=== PATIENT | male | born 1960 | race Caucasian/White ===

== ENCOUNTER 2023-01-23 09:34 | Outpatient (CLI) | payer OTHER, SELFPAY ==
--- NOTE | ~2023-01-23 | CT_ITS ---
CT Scan of the Chest without Contrast: Clinical Indication: Lung cancer screening, personal history of nicotine dependence Technique: Contiguous sections were acquired throughout the chest without intravenous contrast. Dose reduction technique was used on this scan by utilizing automated exposure control and iterative recon struction technique. The dose-length product (DLP) was 176.59 mGy-cm. Findings: There is no evidence of any significant mediastinal, hilar or axillary lymphadenopathy. Coronary barry ry calcifications are noted. There is no evidence of pleural or pericardial effusion. The lungs are clear. No pulmonary nodules or infiltrates are noted. Images through the upper abdomen reveal no abnormalities. Impression: Lung-RADS 1: Negative. 12 month follow-up screening CT advised. Reviewed, dictated and finalized at location . Impression: Lung-RADS 1: Negative. 12 month follow-up screening CT advised.
== END 2023-01-23 09:35 | disposition home or self-care (01) ==
PROVIDERS: PCP Family Medicine; Visit Provider Family Medicine
DX: Z12.2 Encounter for screening for malignant neoplasm of respiratory organs (principal); Z87.891 Personal history of nicotine dependence
CPT/HCPCS: 71271

== ENCOUNTER 2025-01-07 08:07 | Outpatient (CLI) | payer MEDICARE, SELFPAY ==
--- OUTSIDE RECORDS SUMMARY | 2025-01-07 08:27 | XMS_ITS | Data Portability ---
Author Organization [facility], Main Office Address [address] [place] [address] Care Team Providers Care Raiser Helper Name Role Phone JT ELKINS Primary Care Provider JT ELKINS Referring Provider [phone] Assessment Encounter Date Assessment Date Assessment LastModified by Organization Details LastModified Time 06/06/2023 06/06/2023 Patient is 11 years status post total knee arthroplasty right doing well. He has an arthritic left knee [id number]. Clearly is going to need a knee replacement at some point he is not ready at this time that we discuss surgical possibilities intervention. He will call me when he is ready I have discussed this with him in detail risks benefits limitations and alternatives. In the meantime I injected the left knee with 20 mg Kenalog 4 cc 1% lidocaine. ata Not available 06/06/2023 10:59:41 07/06/2024 07/06/2024 64-year-old male presents for evaluation of his left knee. He reports 3-4 years of arthritis pain, currently rated as 3/10. It has been getting worse over the past month, with increasing swelling. He has a history of a TKA on the [place] [address] Galeano. For the left knee, he has been using Biofreeze, taking diclofenac, and also had a cortisone injection about a year ago which worked well for a few months. He currently smokes 2 packs a day. Review of systems per patient questionnaire Physical exam: Right knee incision is well healed, good range of motion 0-130. Left knee with tenderness palpation over the medial and lateral joint line, range motion 0-130. Sensation intact to light touch, 2+ DP pulse X-rays reviewed, demonstrating right TKA in place. Left knee with severe degenerative changes,bone-on-b one of the medial compartment, lateral compartment chondrocalcinosis , patellofemoral joint space narrowing and osteophytes He has left knee arthritis and we will continue conservative management. He does not want to do physical therapy so we gave him a home exercise program. We also gave him a diclofenac refill, as he said Celebrex and meloxicam did not work well for him in the past. We also discussed a repeat cortisone injection which she wanted to proceed with today. He tolerated that well. We will see him back as needed, we discussed that he can get injections every 3-4 months if needed. [email or web address] Not available 07/06/2024 12:48:39 Plan of Treatment Reminders Order Date Submit Date Provider Last Modified By Organization Details Last Modified Time Details Appointments None recorded. Lab None recorded. Referral None recorded. Procedures injection/a spiration joint/bursa (PROC) 2023 024 [email or web address] 3 In-Office Order, Internal Use Only DO Not Attach Compendium DO Not Attach Compendium, Do Not Delete/merge, [id number] 4 10:32:28 injection/a spiration joint/bursa (PROC) - in office procedure, administere d by provider 2022 023 [email or web address] In-Office Order, Internal Use Only DO Not Attach Compendium DO Not Attach Compendium, Do Not Delete/merge, [id number] 3 10:51:52 Surgeries None recorded. Imaging XR, knee 2023 024 [email or web address] [facility], [address], [place], [address], 4 14:48:30 XR, knee, 4 or more view 2022 023 [email or web address] [facility] [place], [facility], [place], [address], 3 11:34:41 Medication Orders diclofenac sodium 75 mg tablet,dara yed release 2023 024 [email or web address] [id number], [address], [place], [place], [id number], 4 14:48:30 bupivacaine HCl 0.5 % (5 mg/mL) injection solution [address] [facility][id number], [address], [place], [place], [id number], 4 14:48:30 Kenalog 10 mg/mL suspension for injection [address] [facility][id number], [address], [place], [place], [id number], 4 14:48:30 Kenalog 10 mg/mL suspension for injection [address] [facility]34108, [address] , [place], [place], [id number], 4 10:09:49 ropivacaine (PF) 5 mg/mL (0.5 %) injection solution [address] [facility]98647, [address] , [place], [place], [id number], 4 10:09:59 Patient TargetsNo targets recorded. Patient InstructionsNo instructions recorded. Reason for Referral None Reported. Results Created Date Observation Date Name Description Value Unit Range Abnormal Flag Note LastModifiedBy Organization Detail LastModifiedTime 06/06/20 23 XR, knee, 4 or more view No observ ation record ed. ata [facility] [address], [place], [address], 06/06/2023 10:58:56 07/06/20 24 XR, knee No observ ation record ed. [email or web address] [facility] [address], [place], [address], 07/06/2024 10:14:36 Result Notes None recorded. Problems Name Problem SNOMED Code Status Onset Date Resolution Date Notes Provider Name and Address Organization Details Recorded Time Arthritis of left knee 7474474493471 104 Active 2020 Not Available [facility] 3 13:30:05 History of right total knee replacemen t 9391943052964 102 Active 2020 Not Available [facility] 3 13:30:06 Osteoarthr itis of hip 619036762 Active Not Available [facility] 3 13:30:06 Knee pain Active Not Available [facility] 3 13:30:06 Hip pain 43977527 Active Not Available [facility] 3 13:30:06 Pain in limb 83499964 Active Not Available [facility] 3 13:30:06 Pain of left knee joint 5415170447265 07 Active 2023 Laurel Caraballo CNA null, [place] [facility] 4 10:14:28 Osteoarthr itis of left knee joint 1721635325946 09 Active 2024 MARCIA Law, [place] - [facility] 5 11:45:00 Problem Notes None recorded. Procedures Surgical History Date Name Laterality Status Provider Name and Address Organization Details Recorded Time 3 Ortho - Cortisone Injection completed Cameron Lane MD [address] [place] [address], [address], [address], [place] [facility] 06/06/2023 10:59:52 Knee Surgery completed Laurel Caraballo CNA [place] [facility] 07/06/2024 10:12:18 Hip surgery completed GURMEET Rios [place] [facility] 06/06/2023 10:31:30 Shoulder completed Laurel Caraballo CNA [place] [facility] 07/06/2024 10:12:31 Imaging Results Imaging Date Name Status LastModified by Organiz ation Details LastModified Time 06/06/2023 XR, knee, 4 or more view completed ata [facility] [address], [place], [address], 06/06/2023 10:58:56 07/06/2024 XR, knee completed [email or web address] [facility] [address], [place], [address], 07/06/2024 10:14:36 Procedure Notes None recorded. Medical Equipment None Reported. Allergies No known drug allergies Medications Name Sig Start Date Stop Date Status Note LastModified by Organization Details LastModified Time celecoxib 200 mg capsule TAKE 1 CAPSULE BY MOUTH EVERY DAY 07/06 completed Not Available Not Available Not Available amoxicillin 500 mg capsule 07/14 completed Not Available Not Available Not Available prednisone 10 mg tablet 07/14 completed Not Available Not Available Not Available ibuprofen 800 mg tablet 07/14 completed Not Available Not Available Not Available hydrocodone 5 mg-acetamin ophen 325 mg tablet 07/14 completed Not Available Not Available Not Available bupivacaine HCl 0.5 % (5 mg/mL) injection solution in office 2023 active Not Available Not Available Not Avai lable sulfamethox azole 800 mg-trimetho prim 160 mg tablet TK 1 T PO BID 07/14 completed Not Available Not Available Not Available Kenalog 10 mg/mL suspension for injection in office 2023 active NDC: 0003- 0494- 20 Not Available Not Available Not Available cephalexin 500 mg capsule 07/14 completed Not Available Not Available Not Available diclofenac potassium 50 mg tablet TAKE 1 TABLET BY MOUTH TWICE DAILY 07/06 completed Not Available Not Available Not Available diclofenac sodium 75 mg tablet,dara yed release Take 1 tablet twice a day by oral route. 2023 active Not Available Not Available Not Avai lable diclofenac sodium 50 mg tablet,dara yed release TAKE 1 TABLET BY MOUTH TWICE DAILY active Not Available Not Available No t Available ibuprofen 600 mg tablet 07/14 completed Not Available Not Available Not Available lidocaine (PF) 10 mg/mL (1 %) injection solution In office injection administe red by the provider 07/06 completed NDC: 0409- 4276- 17 Not Available Not Available Not Available Synvisc-One 48 mg/6 mL intra-artic ular syringe Take 6 mL by intraarti cular route as directed, for left knee osteoarth ritis. 2024 active Not Available Not Available Not Avai lable ropivacaine (PF) 5 mg/mL (0.5 %) injection solution Take 20 mg by injection route. 07/06 completed [facility] [phone] -[phone] Not Available Not Available Not Available Vitals Date Recorded Body mass index (BMI) Body height Body weight Provider Name and Address Organization Details Last Updated DateTime 02/16/2021 33.7 kg/m2 177.8 cm 649727.21 g Not Available [facility] 12/26/2022 13:29:52 Date Recorded Body height Body mass index (BMI) Body weight Provider Name and Address Organization Details Last Updated DateTime 06/06/2023 175.26 cm 32.5 kg/m2 10699.32 g GURMEET Rios [employer] 06/06/2023 10:29:42 Date Recorded Body height Body mass index (BMI) Body weight Provider Name and Address Organization Details Last Updated DateTime 07/06/2024 175.26 cm 28.8 kg/m2 94106.51 g Laurel Caraballo CNA [employer] 07/06/2024 10:08:55 Social History Question Answer Notes LastModified by Organizat ion Details LastModified Time Tobacco Smoking Status Current Every Day Smoker Tonya Carnes ATC L [facility], [employer] 06/06/2023 10:30:46 What Is Your Level Of Alcohol Consumption? None Information not available 07/06/2024 How Much Tobacco Do You Smoke? 2 PPD [email or web address] Information not available 06/06/2023 How Many Years Have You Smoked Tobacco? 50 Information not available 07/06/2024 Sex: Unknown Functional Status None recorded. Mental Status None recorded. Family History Relationship Description Onset Age of this Age Resolved Age Notes LastModified by Organization Details LastModified Time Father Family history of malignant neoplasm [email or web address] Not available 05/28 10:30:08 Mother Kidney disease [email or web address] Not available 05/28 10:30:17 Mother Heart disease [email or web address] Not available 2023 10:11:22 Brother Kidney disease [email or web address] Not available 2023 10:11:06 Notes:cancer-brother Medical History Condition Response ARTHRITIS Y GOUT Y COPD Y Past Encounters Encounter ID Performer Location Encounter Start Date Encounter Closed Date Diagnosis/Indication Diagnosis SNOMED-CT Code Diagnosis ICD10 Code Diagnosis Note [id number] [facility] [address] [place] [address] 02/16/2021 00:00:00 02/16/2021 13:33:[id number] MD [facility] [address] [place] [address] 06/06/2023 10:10:24 06/06/2023 11:34:41 Arthritis of left knee 5050758220 433007 M13.862 History of right total knee replacement 8727562537 144856 Z96.651 Knee pain 41320984 M25.5 62 [id number] Houston Zhang MD [facility] [address] [place] [address] 07/06/2024 09:47:27 07/06/2024 10:44:54 Pain of left knee joint 0212163047 59987 M25.562 Health Concerns Section Related Observation LastModified by Organization Detai ls LastModified Time None Recorded Concern Status LastModified by Organization Details LastModified Time None Recorded Advance Directives Directive None Recorded Payers Encounter Date Sequence Insurance Name Policy Number Policy Kevin Covered Member ID Kevin Member ID Guarantor Name 06/06/2023 1 [facility] [id number] Jori Sumi [id number] Jori Sumi 07/06/2024 1 [facility] (MEDICARE REPLACEMENT/A DVANTAGE - PPO) [id number] Jori Jonas [id number] Jori Jonas Notes Date Note Type Note Provider Name and Address Organization Details Recorded Time 02/16/2021 text/html KneeReported bypatient.Location :left Quality:aching; throbbing; dull Severity:moderate Duration:continuou s since onset Timing:chronic Alleviating Factors:sitting; lying down; rest; elevation Aggravating Factors:bending/sq uatting; weight bearing Associated Symptoms:no weakness; no numbness; no tingling; no redness; no ecchymosis; no catching/locking; no popping/clicking; no buckling; no instability; no radiation down leg; no drainage; no fever; no chills; no weight loss; no change in bowel/bladder habits;swelling;wa rmth;grinding Not Available [employer] 02/16/2021 13:33:46 06/06/2023 text/html Patient returns knee pain left. He has got pain in the left knee worse with activity somewhat rest. He is 10 years out to 11 years out status post total knee arthroplasty on the right by Dr. Wheatley and doing well. Cameron Lane MD [address] [place] [address], [address], [employer] 06/06/2023 11:00:18
--- OUTSIDE RECORDS SUMMARY | 2025-01-07 08:27 | XMS_ITS | Clinical Summary ---
Author Organization [facility] Address [address] [facility], [facility] [address] [place] [address] Phone Care Team Providers Care Electric Organ Inspector And Repairer Name Role Phone Provider, None Primary Care Provider Unavailabl e Allergies No known active allergies Medications celecoxib (CELEBREX) 200 MG Capsule Take 200 mg by mouth 2 times daily. Active diclofenac (CATAFLAM) 50 MG Tablet 2 03/06/2018 Active Active Problems Problem Noted Date Diagnosed Date Chronic eczematous otitis externa of both ears 0 04/05/2016 Acquired stenosis of both external ear canals Family History Medical History Relation Name Comments Cancer Father Congestive Heart Failure Mother Kidney Disease Mother Relation Name Status Comments Father Mother Social History Tobacco Use Types Packs/Day Years Used Date Smoking Tobacco: Every Day Cigarettes 1 40 Smokeless Tobacco: Never Alcohol Use Standard Drinks/Week Comments No 0 (1 standard drink = 0.6 oz pur e alcohol) Sex and Gender Information Value Date Recorded Sex Assigned at Not on file Legal Sex Male 11:01 PM CDT Gender Identity Not on file Sexual Orientation Not on file 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 Not on file Not on file Not on file Last Filed Vital Signs Vital Sign Reading Time Taken Comments Blood Pressure 124/78 03/26/2018 1:32 PM CDT Pulse 83 03/26/2018 1:32 PM CDT Temperature - - Respiratory Rate 16 03/26/2018 1:32 PM CDT Oxygen Saturation 95% 03/26/2018 1:32 PM CDT Inhaled Oxygen Concentration - - Weight 112 kg (247 lb) 03/26/2018 1:32 PM CDT Height 177.8 cm (5' 10 ) 03/26/2018 1:32 PM CDT Body Mass Index 35.44 03/26/2018 1:32 PM CDT Plan of Treatment Health Maintenance Due Date Last Done Comments Hepatitis C Virus (HCV) Screening 1960 TdaP Immunization 1960 Colonoscopy 01/26/2004 Colorectal Cancer Screening 01/26/2004 Cologuard 2009 Immunochemical Fecal Occult Blood 2009 Pneumococcal Immunization (5 0+ years) (1 of 1 - PCV) 2009 Zoster Immunization (1 of 2) 2009 PSA Discussion 2014 Influenza Immunization (#1) 2024 SARS-COV-2 Immunization ( season) 2024 10/11/2021, 03/15/2021, 02/15/2021 Respiratory Syncytial Virus (RSV) Immunization (Adult) (1 - 1-dose 75+ series) 2034 Hepatitis B Immunization Aged Out No longer eligible based on patient's age to complete this topic Meningococcal Immunization (ACWY) Aged Out No longer eligible b ased on patient's age to complete this topic Rotavirus Immunization Aged Out No lo nger eligible based on patient's age to complete this topic Care Teams Electric Organ Inspector And Repairer Relationship Specialty Start Date End Date Provider, None [place] PCP - General 04/05/16
--- OUTSIDE RECORDS SUMMARY | 2025-01-07 08:27 | XMS_ITS | CONTINUITY OF CARE DOCUMENT ---
Author Name arabella bell Address Unknown Organization [facility] Address [address] [place] [address] [address] [place] [address] Phone [phone] Care Team Providers Care Sweet Pickle Maker Name Role Phone arabella bell Unavailable Unavailable INSURANCE PROVIDERS Payer name Policy type / Coverage type Luis A red republican ID [id number] insurance NPR [id number]
--- OUTSIDE RECORDS SUMMARY | 2025-01-07 08:28 | XMS_ITS | Referral Summary ---
Author Organization [facility] Address [address] [place] [address] Care Team Providers Care Backrest Assembler Name Role Phone Renita Donaldson MD Primary Care Provider [phone] Allergies No known active allergies Medications diclofenac DR (VOLTAREN) 50 mg EC tablet diclofenac sodium 50 mg tablet,delayed release TK 1 T PO BID Active ARIPiprazole (ABILIFY) 15 mg tablet Take 1 tablet (15 mg total) by mouth daily 4 Active BUPivacaine HCl (MARCAINE) 0.5 % (5 mg/mL) injection in office 4 Active ROPivacaine (NAROPIN) 5 mg/mL (0.5 %) injection Take 20 mg by injection route. 3 Active Active Problems Problem Noted Date Diagnosed Date Osteoarthritis of hip 05/31/2022 Arthritis of left knee 02/16/2021 History of total right knee replacement 02/17/20 21 Acquired stenosis of both external ear canals Immunizations Immunization Administration Dates Next Due Influenza, Quadrivalent, Spl it, Intramuscular 08/02/2021,08/10/2020,09/21/2019,08/12 Pneumococcal Polysaccharide PPV23 08/12/2018 Tdap 05/27/2018 Tetanus Toxoid, Unspecified 04/20/2019 Social History Tobacco Use Types Packs/Day Years Used Date Smoking Tobacco: Some Days Smokeless Tobacco: Never Tobacco Cessation:Ready to Q uit: No; Counseling Given: Yes Sex and Gender Information Value Date Recorded Sex Assigned at Not on file Legal Sex Male 11:42 AM DRAINMAN Gender Identity Not on file Sexual Orientation Not on file Last Filed Vital Signs Vital Sign Reading Time Taken Comments Blood Pressure 117/68 05/31/2022 12:08 PM CDT Pulse 67 05/31/2022 12:08 PM CDT Temperature - - Respiratory Rate - - Oxygen Saturation - - Inhaled Oxygen Concentration - - Weight 108.4 kg (238 lb 15.7 oz) 09/23/2024 9:49 AM DRAINMAN Height 179.1 cm (5' 10.51 ) 09/23/2024 9:[address] Body Mass Index 33.79 09/23/2024 9:49 AM DRAINMAN Plan of Treatment Not on file Insurance [facility] [place] [id number] [employer] MEDIC[employer] [facility] MEDIC[facility] Address: [address] [address] [place] [address] Care Teams Backrest Assembler Relationship Specialty Start Date End Date Renita Donaldson MD [address] [address] PCP - General Family Medicine 05/31/22
--- OUTSIDE RECORDS SUMMARY | 2025-01-07 08:28 | XMS_ITS | Data Portability ---
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 Plan of Treatment Reminders Order Date Submit Date Provider Last Modified By Organization Details Last Modified Time Details Appointments None recorded. Lab CMP, serum or plasma [address] [place] [address] (Lab), [address] [place] [address], [phone], 14:42:31 CBC [address] [place] [address] (Lab), [address], [address], 5 14:42:31 lipid panel, serum [address] [place] [address] (Lab), [address], [address], 5 14:42:31 PSA, serum or plasma [address] [place] [address] (Lab), [address], [address], 5 14:42:31 hepatitis C virus Ab, serum [address] [place] [address] (Lab), [address], [address], 5 14:42:31 HIV 1+2 Ab + HIV1 p24 Ag, quantitati ve immunoassa y, serum [address] [facility] (Lab), [address] [facility] [address], [place], [address], 5 14:42:31 CMP, serum or plasma 2022 023 [facility], [address], [place], [address], 3 01:38:08 CBC 2022 023 [facility], [address], [place], [address], 3 01:38:08 PSA, serum or plasma 2022 023 [facility], [address], [place], [address], 3 01:38:09 lipid panel, serum 2022 023 [facility], [address] [place] [address], [address], [place], [address], 3 13:21:51 noninvasiv e colorectal cancer DNA + occult blood screening, QL, stool 2022 023 [facility] (Cologuard Orders Only), [address], [place], [address], 3 10:30:22 lipid panel, serum 2022 023 [facility], [address], [place], [address], 3 01:38:06 PSA, total, serum or plasma 2020 021 [facility] (Lab), [address] [facility] [address], [place], [address], 1 10:06:17 lipid panel, serum 2020 021 [facility] (Lab), [address] [facility] [address], [place], [address], 1 10:06:17 CMP, serum or plasma 2020 021 [facility] (Lab), [facility] [address], [place], [address], 1 10:06:17 CBC 2020 021 [facility] (Lab), [facility]0 [facility] [address], [place], [address], 1 10:06:17 Referral None recorded. Procedures None recorded. Surgeries None recorded. Imaging US, screening for abdominal aortic aneurysm 2024 025 [facility], [address] [place] [address] [address], [place], [address], 5 04:16:56 LDCT, chest, for lung cancer screening 2024 025 [facility], [address] [place] [address] [address], [place], [address], 5 04:16:54 electrocar diogram 2022 023 [facility], [facility]0 [facility] [address], [place], [address], 3 09:12:47 LDCT, chest, for lung cancer screening 2022 023 [facility], [address] [place] [address] [address], [place], [address], 3 10:44:20 XR, lumbar spine [address] [facility], [address] [place] [address] [address], [place], [address], 1 16:10:55 XR, chest, 2 view 2020 021 [facility], [address], [place], [address], 1 16:10:55 LDCT, chest, for lung cancer screening 2020 021 [facility] (One Call Scheduling), [address], [place], [address], 1 11:01:45 Medication Orders quetiapine 100 mg tablet 2023 024 [id number], [address], [place], [place], [id number], 4 10:48:24 celecoxib 200 mg capsule [email or web address] [id number], [address], [place], [place], [id number], 3 14:31:39 diclofenac sodium 50 mg tablet,del ayed release 2020 021 Not available 3 12:45:12 tizanidine 4 mg tablet 2020 021 [email or web address] Not available 3 11:32:52 vareniclin e tartrate 0.5 mg tablet 2020 021 Not available 3 14:54:53 vareniclin e tartrate 1 mg tablet 2020 021 Not available 3 14:54:58 Patient TargetsNo targets recorded. Patient Instructions Encounter Date Encounter Id Patient Instructions Last Modified By Organization Details Last Modified Time 09/01/2024 [id number] bipolar disorder : care instructions Not available 09/01/2024 15:07:14 learning about m ood disorders Not available 09/01/2024 15:07:14 lightheadedness or faintness: care instructions Not available 09/01/2024 15:07:14 he declined taki ng any blood or doing any cardiac eval aside from exam here in office -- plans to come back in Oct for full physical Not available 09/01/2024 15:30:55 11/17/2024 [id number] advance care planning: care instructions Not available 11/17/2024 16:07:48 preventing falls : care instructions Not available 11/17/2024 16:07:48 Quitting Tobacco : Care Instructions Not available 11/17/2024 16:07:48 [facility] Not available 11/17/2024 16:07:48 Reason for Referral None Reported. Results Created Date Observation Date Name Description Value Unit Range Abnormal Flag Note LastModifiedBy Organization Detail LastModifiedTime 12/11/1912/13/2022 LIPID PANEL , STAND GERRY cholesterol, total 254 mg/dL <200 high Not Available [address], [address], 12/13/2022 01:38:06 12/11/1912/13/2022 LIPID PANEL , STAND GERRY HDL cholesterol 52 mg/dL > or = 40 normal Not Available [address], [address], 12/13/2022 01:38:06 12/11/1912/13/2022 LIPID PANEL , STAND GERRY triglyceride s 104 mg/dL <150 normal Not Available [address], [address], 12/13/2022 01:38:06 12/11/1912/13/2022 LIPID PANEL , STAND GERRY LDL-choleste rol 179 mg/dL _(liza c) high Refer ence range : <100 Shannan able range <100 mg/dL for prima ry preve ntion ; <70 mg/dL for patie nts with CHD or diabe tic patie nts with > or = 2 CHD risk facto rs. LDL-C is now calcu lated using the Bailey n-Hop kins calcu latio n, which is a valid ated novel metho d provi ding linda r accur acy than the Fried leni ortegaat ion in the estim ation of LDL-C . Bailey grissom SS et al. ZUNILDA. 2013; 310(1 9): 2061- 2068 (http ://ed ucati on.Qu jaclynShellcatchs. com/f aq/FA Q164) Not Available [address], [address], 12/13/2022 01:38:06 12/11/1912/13/2022 LIPID PANEL , STAND GERRY chol/HDLC ratio 4.9 (calc ) <5.0 normal Not Available [address], [address], 12/13/2022 01:38:06 12/11/1912/13/2022 LIPID PANEL , STAND GERRY non HDL cholesterol 202 mg/dL _(liza c) <130 high For patie nts with diabe eva plus 1 major ASCVD risk facto r, treat ing to a non-H DL-C goal of <100 mg/dL (LDL- C of <70 mg/dL ) is johann ma optio n. Not Available [address] [address] [place], [address], 12/13/2022 01:38:06 12/11/1912/13/2022 COMPR EHENS LOIDA METAB OLIC PANEL glucose 78 mg/dL 65-99 normal Fasti ng refer ence inter brenda Not Available [facility] [address] [address] [place], [address], 12/13/2022 01:38:08 12/11/19 23 12/13/2022 COMPR EHENS LOIDA METAB OLIC PANEL urea nitrogen (BUN) 24 mg/dL 7-25 normal Not Available [address] [address] [place], [address], 12/13/2022 01:38:08 12/11/19 23 12/13/2022 COMPR EHENS LOIDA METAB OLIC PANEL creatinine 1.08 mg/dL 0.70-1 .35 normal Not Available [address], [address], 12/13/2022 01:38:08 12/11/19 23 12/13/2022 COMPR EHENS LOIDA METAB OLIC PANEL eGFR 77 mL/mi n/1.7 3m2 > or = 60 normal The eGFR is based on the CKD-E PI 2020 equat ion. To calcu late the new eGFR from a previ ous Creat inine or Cysta tin C resul t, go to https ://dalton paiz/teresa johnson s/ kdoqi /gfr% 5Fcal culat or Not Available [address], [address], 12/13/2022 01:38:08 12/11/19 23 12/13/2022 COMPR EHENS LOIDA METAB OLIC PANEL BUN/creatini ne ratio NOT APPLIC ABLE (calc ) 6-22 Not Available [address], [address], 12/13/2022 01:38:08 12/11/19 23 12/13/2022 COMPR EHENS LOIDA METAB OLIC PANEL sodium 142 mmol/ L 135-14 6 normal Not Available [address], [address], 12/13/2022 01:38:08 12/11/19 23 12/13/2022 COMPR EHENS LOIDA METAB OLIC PANEL potassium 4.6 mmol/ L 3.5-5. 3 normal Not Available [address], [address], 12/13/2022 01:38:08 12/11/19 23 12/13/2022 COMPR EHENS LOIDA METAB OLIC PANEL chloride 107 mmol/ L 98-110 normal Not Available [address], [address], 12/13/2022 01:38:08 12/11/19 23 12/13/2022 COMPR EHENS LOIDA METAB OLIC PANEL carbon dioxide 29 mmol/ L 20-32 normal Not Available [address], [address], 12/13/2022 01:38:08 12/11/19 23 12/13/2022 COMPR EHENS LOIDA METAB OLIC PANEL calcium 10.1 mg/dL 8.6-10 .3 normal Not Available [address], [address], 12/13/2022 01:38:08 12/11/19 23 12/13/2022 COMPR EHENS LOIDA METAB OLIC PANEL protein, total 7.4 g/dL 6.1-8. 1 normal Not Available [address], [address], 12/13/2022 01:38:08 12/11/19 23 12/13/2022 COMPR EHENS LOIDA METAB OLIC PANEL albumin 4.4 g/dL 3.6-5. 1 normal Not Available [address], [address], 12/13/2022 01:38:08 12/11/19 23 12/13/2022 COMPR EHENS LOIDA METAB OLIC PANEL globulin 3.0 g/dL_ (calc ) 1.9-3. 7 normal Not Available [address], [address], 12/13/2022 01:38:08 12/11/19 23 12/13/2022 COMPR EHENS LOIDA METAB OLIC PANEL albumin/glob ulin ratio 1.5 (calc ) 1.0-2. 5 normal Not Available [address], [address], 12/13/2022 01:38:08 12/11/1912/13/2022 COMPR EHENS LOIDA METAB OLIC PANEL bilirubin, total 0.4 mg/dL 0.2-1. 2 normal Not Available [address], [address], 12/13/2022 01:38:08 12/11/1912/13/2022 COMPR EHENS LOIDA METAB OLIC PANEL alkaline phosphatase 72 U/L 35-144 normal Not Available [address], [address], 12/13/2022 01:38:08 12/11/1912/13/2022 COMPR EHENS LOIDA METAB OLIC PANEL AST 17 U/L 10-35 normal Not Available [address], [address], 12/13/2022 01:38:08 12/11/1912/13/2022 COMPR EHENS LOIDA METAB OLIC PANEL ALT 10 U/L 9-46 normal Not Available [address], [address], 12/13/2022 01:38:08 12/11/1912/13/2022 CBC (H/H, RBC, INDIC ES, WBC, PLT) white blood cell count 9.5 thous and/u L 3.8-10 .8 normal Not Available [address], [address], 12/13/2022 01:38:08 12/11/1912/13/2022 CBC (H/H, RBC, INDIC ES, WBC, PLT) red blood cell count 4.83 kody on/uL 4.20-5 .80 normal Not Available [address], [address], 12/13/2022 01:38:08 12/11/1912/13/2022 CBC (H/H, RBC, INDIC ES, WBC, PLT) hemoglobin 15.2 g/dL 13.2-1 7.1 normal Not Available [address], [address], 12/13/2022 01:38:08 12/11/1912/13/2022 CBC (H/H, RBC, INDIC ES, WBC, PLT) hematocrit 45.5 % 38.5-5 0.0 normal Not Available [address], [address], 12/13/2022 01:38:08 12/11/1912/13/2022 CBC (H/H, RBC, INDIC ES, WBC, PLT) MCV 94.2 fL 80.0-1 00.0 normal Not Available [address], [address], 12/13/2022 01:38:08 12/11/1912/13/2022 CBC (H/H, RBC, INDIC ES, WBC, PLT) MCH 31.5 pg 27.0-3 3.0 normal Not Available [address], [address], 12/13/2022 01:38:08 12/11/1912/13/2022 CBC (H/H, RBC, INDIC ES, WBC, PLT) MCHC 33.4 g/dL 32.0-3 6.0 normal Not Available [address], [address], 12/13/2022 01:38:08 12/11/1912/13/2022 CBC (H/H, RBC, INDIC ES, WBC, PLT) RDW 12.6 % 11.0-1 5.0 normal Not Available [address], [address], 12/13/2022 01:38:08 12/11/1912/13/2022 CBC (H/H, RBC, INDIC ES, WBC, PLT) platelet count 281 thous and/u L 140-40 0 normal Not Available [address], [address], 12/13/2022 01:38:08 12/11/19 23 12/13/2022 CBC (H/H, RBC, INDIC ES, WBC, PLT) MPV 9.6 fL 7.5-12 .5 normal Not Available [facility] [address] [address] [place], [address], 12/13/2022 01:38:08 12/11/1912/13/2022 PSA, TOTAL PSA, total 0.49 NG/mL < or = 4.00 normal The total PSA value from this assay syste m is stand ardiz ed again st the WHO stand gerry. The test resul t will be appro ximat liang 20% lower when solomon red to the equim olar- stand ardiz ed total PSA (Yoo man Coult er). Solomon rison of seria l PSA resul ts shoul d be inter prete d with this fact in mind. This test was perfo rmed using the [employer] chemi lumin escen t metho d. Value s obtai nisreen from diffe rent assay metho ds canno t be used inter faulkner eably . PSA level s, regar dless of value , shoul d not be inter prete d as absol citizen [place] evide nce of the prese nce or absen ce of disea se. Not Available [address] [address] [place], [address], 12/13/2022 01:38:09 01/08/2001/07/2023 COLOG UARD cologuard result reportable Negati ve negati ve NEGAT LOIDA TEST RESUL T. A negat loida Colog uard resul t indic ates a low likel ihood that a color ectal cance r (CRC) or advan hilda adeno ma (kalie omato us polyp s with more advan hilda pre-m align ant featu res) is prese nt. The chanc e that a perso n with a negat loida Colog uard test has a color ectal cance r is less than 1 in 1500 (nega tive predi ctive value >99.9 %) or has an advan hilda adeno ma is less than 5.3% (nega tive predi ctive value 94.7% ). These data are based on a prosp ectiv e cross -sect ional study of 10,00 0 indiv idual s at [facility] risk for color ectal cance r who were scree nisreen with both Colog uard and colon oscop y. (Reglae terrie T. et al, N Engl J Med 2014; 370(1 4):12 86-12 97) The mildred l value (refe rence range ) for this assay is negat loida. COLOG UARD RE-SC REENI NG RECOM MENDA TION: Perio dic color ectal cance r scree kathy is an impor tant part of preve ntive healt hcare for asymp tomat ic indiv idual s at [facility] risk for color ectal cance r. Follo wing a negat loida Colog uard resul t, the Ameri can Cance r Socie ty and U.S. Multi -Soci ety Task Force scree kathy guide lines recom mend a Colog uard re-sc reeni ng inter brenda of 3 years . Refer ences : Ameri can Cance r Socie ty Guide line for Color ectal Cance r Scree kathy: https ://dalton w.can cer.o rg/ca ncer/ colon -rect al-ca ncer/ detec tion- diagn osis- stagi ng/ac s-rec ommen datio ns.ht ml.; Darron ADAMS, Latasha BARKER, Lucas PÉREZ, Color ectal Cance r Scree kathy: Recom menda tions for Physi cians and Patie nts from the U.S. Multi -Soci ety Task Force on Color ectal Cance r Scree kathy , Ivone Thibodeaux Gastr jefferynte rolog y 2017; 112:1 016-1 030. TEST DESCR IPTIO N: Isle site algor ithmi c cleopatra sis of stool DNA-b iojuan kers with hemog lobin immun oassa y. Quant itati ve value s of indiv idual bioma rkers are not repor table and are not assoc iated with indiv idual bioma rker resul t refer ence range s. Colog uard is inten ded for color ectal cance r scree kathy of adult s of eithe r sex, 45 years or older , who are at [facility] for color ectal cance r (CRC) . Colog uard has been appro kathrine for use by the U.S. FDA. The perfo rmanc e of Colog uard was estab lishe d in a cross secti onal study of [facility] adult s aged 50-84 . Colog uard perfo rmanc e in patie nts ages 45 to 49 years was estim ated by sub-g roup cleopatra sis of near- age group s. Colon oscop ies perfo rmed for a posit loida resul t may find as the most clini sea signi fican t lesio n: color ectal cance r [4.0% ], advan hilda adeno ma (incl uding sessi le bishnu layo polyp s great er than or equal to 1cm diame ter) [20%] or non- advan hilda adeno ma [31%] ; or no color ectal neopl tana [45%] . These estim ates are deriv ed from a prosp ectiv e cross -sect ional scree kathy study of 10,00 0 indiv idual s at [facility] risk for color ectal cance r who were scree nisreen with both Colog uard and colon oscop y. (Violetta Rascon et al, N Engl J Med 2014; 370(1 4):12 86-12 97.) Colog uard may produ ce a false negat loida or false posit loida resul t (no color ectal cance r or preca ncero us polyp prese nt at colon oscop y follo w up). A negat loida Colog uard test resul t does not guara ntee the absen ce of CRC or advan hilda adeno ma (pre- cance r). The curre nt Colog uard martinez chavez inter brenda is every 3 years . (Amer ican Cance r Socie ty and U.S. Multi -Soci ety Task Force ). Colog uard perfo rmanc e data in a 10,00 0 patie nt pivot al study using colon oscop y as the refer ence metho d can be acces sed at the follo wing locat ion: www.e xactl abs.c om/re sults . Addit ional descr iptio n of the Colog uard test proce ss, warni ngs and preca ution s can be found at www.c ologu gerry.c om. Not Available [employer] (Cologuard Orders Only) [address], [place], [address], 01/12/2023 10:30:22 01/25/20 23 01/23/2023 LDCT, chest , for lung cance r scree kathy No observ ation record ed. [facility] [address], [place], [address], 01/30/2023 11:48:32 Result Notes None recorded. 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, [place], [address], [facility] 4 10:47:02 Cigarette smoker 91879005 Active 2018 Renita Elkins MD Attn: Estelle segundo,[address] [facility], [place], [address], [facility] 4 10:47:10 Unintention al weight loss 362946687 Completed 202311/17/2024 Renita Elkins MD Attn: Estelle segundo,[address] [facility], [place], [address], [facility] 5 15:47:29 History of alcohol abuse 146805821 Active 2023 Renita Elkins MD Attn: Estelle segundo,[address] [facility], [place], [address], [facility] 4 10:46:59 Bipolar disorder 90919074 Active 2023 Renita Elkins MD Attn: Estelle segundo,[address] [facility], [place], [address], [facility] 4 10:47:15 Near syncope 403110780 Completed 202311/17/2024 Renita Elkins MD Attn: Estelle segundo,[address] [facility], [place], [address], [facility] 5 15:46:56 Problem Notes None recorded. Procedures Surgical History Date Name Laterality Status Provider Name and Address Organization Details Recorded Time Knee Surgery completed Evonnegisele Villegas [facility] 05/27/2018 10:18:28 Imaging Results Imaging Date Name Status LastModified by Organiz ation Details LastModified Time 01/23/2023 LDCT, chest, for lung cancer screening completed [facility] [address], [place], [address], 01/30/2023 11:48:32 Procedure Notes None recorded. Medical Equipment None Reported. Allergies No known drug allergies Medications Name Sig Start Date Stop Date Status Note LastModified by Organization Details LastModified Time celecoxib 200 mg capsule TAKE 1 CAPSULE BY MOUTH EVERY DAY 01/10 completed Not Available Not Available Not Available atorvastatin 20 mg tablet Take 1 tablet(s ) every day by oral route. 09/01 completed Not Available Not Available Not Available tizanidine 4 mg tablet Take 1 tablet every 6 hours by oral route for 14 days. 2020 active Not Available Not Available Not Avai lable quetiapine 100 mg tablet Take 1 tablet twice a day by oral route for 30 days. 09/02 completed Not Available Not Available Not Available diclofenac potassium 50 mg tablet Take 1 tablet(s ) twice a day by oral route. 09/291 completed Not Available Not Available Not Available diclofenac sodium 50 mg tablet,delay ed release TAKE 1 TABLET BY MOUTH TWICE DAILY active Not Available Not Available No t Available aripiprazole 15 mg tablet Take 1 tablet every day by oral route for 30 days. 10/23 completed Not Available Not Available Not Available varenicline tartrate 1 mg tablet Take 1 tablet twice a day by oral route. 11/23 completed Not Available Not Available Not Available varenicline tartrate 0.5 mg tablet 1 by mouth daily for 3 days; then 1 by mouth twice a day for 4 days.The n 1 in am and 2 in pm for a week.The n 2 by mouth twice a day 11/23 completed Not Available Not Available Not Available Chantix Starting Month Box 0.5 mg (11)-1 mg (42) tablets in dose pack Take 1 startr pk by oral route as directed . 11/23 completed Not Available Not Available Not Available Vitals Date Recorded Body weight Oxygen saturation Oxygen saturation in Arterial blood by Pulse oximetry Heart rate Body temperature Body height Body mass index (BMI) Systolic blood pressure Diastolic blood pressure Provider Name and Address Organization Details Last Updated DateTime 1 766032. 15 g 96 % 96 % 72 /min 96.8 [degF] 177.17 cm 35 kg/m2 110 mm[Hg] 70 mm[Hg] Francisco Au [place] - [facility] 1 14:50:24 Date Recorded Body height Body mass index (BMI) Body weight Provider Name and Address Organization Details Last Updated DateTime 12/11/2022 176.53 cm 33.2 kg/m2 590071.41 g Dara Jackson MA [place] - [facility] 12/11/2022 11:30:42 Date Recorded Body temperature Oxygen saturation Oxygen saturation in Arterial blood by Pulse oximetry Heart rate Systolic blood pressure Diastolic blood pressure Provider Name and Address Organization Details Last Updated DateTime 3 97.6 [degF] 97 % 97 % 70 /min 122 mm[Hg] 80 mm[Hg] Akilah Yuan [place] - [facility] 3 11:32:31 Date Recorded Body weight Body temperature Oxygen saturation Oxygen saturation in Arterial blood by Pulse oximetry Heart rate Systolic blood pressure Diastolic blood pressure Provider Name and Address Organization Details Last Updated DateTime 4 38591.4 g 98.7 [degF] 97 % 97 % 73 /min 152 mm[Hg] 90 mm[Hg] Dayanara Bonilla MA [facility] 4 14:19:01 Date Recorded Body height Body mass index (BMI) Body weight Oxygen saturation Oxygen saturation in Arterial blood by Pulse oximetry Heart rate Body temperature Systolic blood pressure Diastolic blood pressure Provider Name and Address Organization Details Last Updated DateTime 5 176.53 cm 30.1 kg/m2 66331.6 2 g 99 % 99 % 63 /min 97.8 [degF] 118 mm[Hg] 75 mm[Hg] Sara Rouse MA [facility] 5 14:39:48 Social History Question Answer Notes LastModified by Organizat ion Details LastModified Time Tobacco Smoking Status Current Every Day Smoker Evonne Villegas [facility] 05/27/2018 10:19:11 Do You Have An Advance Directive? Yes Information not available 11/17/2024 What Is Your Level Of Alcohol Consumption? None Information not available 12/11/2022 Are You Blind Or Do You Have Difficulty Seeing? No Information not available 11/17/2024 What Is Your Level Of Caffeine Consumption? Heavy Information not available 12/11/2022 Are You Currently Employed? No Information not available 11/17/2024 Are You Deaf Or Do You Have Serious Difficulty Hearing? No Information not available 11/17/2024 What Type Of Diet Are You Following? REGULAR Information not available 11/17/2024 What Was The Date Of Your Most Recent Tobacco Screening? 11/17/2024 Information not available 11/17/2024 What Is Your Current Pack Years? 30ormorepack years Information not available 12/11/2022 What Is Your Relationship Status? Information not available 11/17/2024 Do You Use Your Seat Belt Or Car Seat Routinely? Yes Information not available 11/17/2024 How Much Tobacco Do You Smoke? 1 PPD Information not available 05/27/2018 Do You Feel Stressed (tense, Restless, Nervous, Or Anxious, Or Unable To Sleep At Night)? [id number] Information not available 11/17/2024 Do You Use Any Illicit Or Recreational Drugs? No Information not available 12/11/2022 Has Tobacco Cessation Counseling Been Provided? No Information not available 12/11/2022 How Many Years Have You Smoked Tobacco? 50 Information not available 05/27/2018 Sex: Unknown Functional Status Question Answer Note LastModified by Organizat ion Details LastModified Time Are you able to care for yourself? Yes Information not available 11/17/2024 What is your exercise level? Occasional Information not available 11/17/2024 Mental Status None recorded. Family History Relationship Description Onset Age of this Age Resolved Age Notes LastModified by Organization Details LastModified Time Father Alcohol abuse [email or web address] Not available 04/29 10:18:48 Brother Alcohol abuse [email or web address] Not available 04/29 10:18:48 Brother Malignant tumor of prostate Not available 2017 11:09:52 Brother Renal failure syndrome Not available 2017 11:10:07 Brother Malignant tumor of larynx Not available 2017 11:10:31 Mother Heart disease [email or web address] Not available 04/29 10:19:00 Mother Renal failure syndrome Not available 2017 11:10:07 Sister Malignant tumor of breast Not available 2017 11:10:43 Medical History Condition Response Coronary Artery Disease N Other N High Blood Pressure N Atrial Fibrillation N Kidney or Bladder Problems N Thyroid Problems N GI Problems N Depression Y COPD N Blood Clots N Skin Problems N Anemia N Heart Attack (HI) N Anxiety Disorder N Diabetes N Muscle, Joint, or Bone Problems N Seizures/Epilepsy N Acid Reflux (GERD) N Cancer N Stroke N Asthma N Allergies N High Cholesterol N Hepatitis N Liver Disease N Headaches N Heart Failure N Osteoporosis N Immunizations Vaccine Type Date Status Note Provider Nam e and Address Organization Details Recorded Time tetanus toxoid, unspecified formulation 9 completed June Nair n null, [place] [facility] 09/22/2019 11:25:58 Influenza, split virus, quadrivalent, preservative 1 completed Renita Elkins MD Attn: Accounting,[address] [place], [place], [address] [place] [address], [facility] 11/17/2024 15:05:22 Influenza, split virus, quadrivalent, preservative 0 completed Renita Elkins MD Attn: Accounting,[address] [place], [address] [place] [address], [facility] 11/17/2024 15:05:22 Influenza, split virus, quadrivalent, preservative 8 completed Renita Elkins MD Attn: Accounting,[address] [place], [address] [place] [address], [facility] 11/17/2024 15:05:22 Influenza, split virus, quadrivalent, preservative 9 completed Renita Elkins MD Attn: Accounting,[address] [place], [address] [place] [address], [facility] 11/17/2024 15:05:22 pneumococcal polysaccharide PPV23 8 completed Renita Elkins MD Attn: Accounting,[address] [place], [address] [place] [address], [facility] 11/17/2024 15:05:22 Influenza, MDCK, quadrivalent, PF 2 completed Renita Elkins MD Attn: Accounting,[address] [place], [address] [place] [address], [facility] - [facility] 07/29/2024 07:36:11 COVID-19, mRNA, LNP-S, PF, 100 mcg/0.5mL dose or 50 mcg/0.25mL dose 1 completed Renita Elkins MD Attn: Accounting,[address] [place], [address] [place] [address], [facility] - [facility] 07/29/2024 07:36:11 Tdap 8 completed Not Available [facility] 11/14/2019 02:35:53 COVID-19, mRNA, LNP-S, PF, 100 mcg/0.5mL dose or 50 mcg/0.25mL dose 1 completed Mady Jhaveri RN [place], [place] [facility] 02/15/2021 14:10:17 COVID-19, mRNA, LNP-S, PF, 100 mcg/0.5mL dose or 50 mcg/0.25mL dose 1 completed Yani Gastelum [place] [facility] 03/15/2021 14:00:09 Influenza, high-dose, trivalent, PF 4 completed Flaquita Barakat [place] [facility] 08/12/2024 11:14:30 Pneumococcal conjugate PCV20, polysaccharide BVC304 conjugate, adjuvant, PF 5 completed Sara Rouse [place], [place] [facility] 11/17/2024 16:28:54 Past Encounters Encounter ID Performer Location Encounter Start Date Encounter Closed Date Diagnosis/Indication Diagnosis SNOMED-CT Code Diagnosis ICD10 Code Diagnosis Note [id number] [facility] [address] [place] [address] 05/27/2018 09:39:42 05/28/2018 09:50:45 Degenerative joint disease involving multiple joints 032090935 M15.9 Long-term drug therapy 764238210 Z79.899 Family his tory of ischemic heart disease 555327839 Z82.49 Family his tory of kidney disease 102033843 Z84.1 Family his tory of breast cancer 130952336 Z80.3 Family his tory of malignant neoplasm of prostate 908755177 Z80.42 Depressive disorder 3548 9007 F33.9 I advise to see a psychiatri st for depression or a counselor- - as stress levels are getting worse with caregiving of in-laws Administra tion of diphtheria, pertussis, and tetanus vaccine 929999305 Z23 Screening for malignant neoplasm of colon 567231361 Z12.11 Cigarette smoker 0060130 7 F17.210 call if interested in Chantix or Zyban [id number] [facility] [address] [place] [address] 08/12/2018 15:10:17 08/13/2018 09:57:29 Administration of influenza vaccine 02522826 Z23 Chronic ob structive pulmonary disease 05805143 J44.9 [id number] Renita Elkins MD [facility] [address] [place] [address] 09/21/2019 15:33:00 09/22/2019 08:30:24 Administration of influenza vaccine 23744088 Z23 routine flu shot today Cigarette smoker 8753663 7 F17.210 start Chantix -- Quit smoking-- discussed effects and side effects and coupon given with info booklet Solar lentigo 48628499 X 32.XXXS use sun screen -- at least SPF 30 or greater--a void sun exposure Nail dystr ophy due to trauma 295595365 L60.3 this is related to previous injury -- there is no cure that I am aware of Epidermoid cyst 42712960 6 L72.0 the infection has resolved and there is no need for further treament to the right mid anterior abdomen-- the hyperpigme ntation should fade in the next 3 months Screening for malignant neoplasm of prostate 063706377 Z12.5 routine screen per patient request Endocrine/ metabolic screening 895001353 Z13.228 lab tsting advised-- will get this fasting Screening for malignant neoplasm of colon 737793365 Z12.11 refuses colonscopy -- will check COLOGUARD [id number] Sandra Harmon MA [facility] [address] [place] [address] 08/10/2020 14:58:27 08/10/2020 17:25:47 Administration of influenza vaccine 97422404 Z23 routine flu shot today [id number] JANA Jones [address] [facility] [address] [place] [address] 02/15/2021 10:54:08 02/16/2021 12:52:57 Administration of SARS-CoV-2 antigen vaccine 525794719 Z23 [id number] NATALIE Leija [address] [facility] [address] [place] [address] 03/15/2021 09:44:09 03/16/2021 23:48:18 Administration of SARS-CoV-2 antigen vaccine 197078854 Z23 [id number] Issac Whalen MA [facility] [address] [place] [address] 08/02/2021 16:11:07 08/02/2021 16:39:57 Administration of influenza vaccine 98084937 Z23 routine flu shot today [id number] Renita Elkins MD [facility] [address] [place] [address] 09/29/2021 13:58:37 09/29/2021 19:51:31 Adult health examination 244065185 Z00.00 here for an annual check updiet discussed . No KETO diet at this time. Eat 7 servings of fruit or vegetable per day -- serving size is ONE CUP raw. Chicken 4 oz 5 times a week and either beef or pork twice a week. OK for up to 3 eggs per day. No white bread or white rice or white pasta. NO white potatoes Low back strain 54209750 1 S39.012A will check XRAy and order short term muscle relaxer. if not better-- will advise PT Cigarette smoker 0073195 7 F17.210 start Chantix -- Quit smoking-- discussed effects and side effectsadv ised CXRI advised LDCT lungs and order given if willing and able to afford given risk Degenerati ve joint disease involving multiple joints 502898842 M15.9 renew diclofenac -- generally no extra use of NSAIDs over the counter is advised Screening for malignant neoplasm of prostate 620456311 Z12.5 routine screen per patient request-- +FH of disease brother [id number] Renita Elkins MD [facility] [address] [place] [address] 12/11/2022 10:40:09 12/12/2022 09:12:46 Adult health examination 739544768 Z00.00 here for an annual check updiet discussed . No KETO diet at this time.chick en 4 oz 5 times a week and either beef or pork twice a week. OK for up to 2 eggs per day. No white bread or white rice or white pasta. NO white potatoes Osteoarthritis 664145952 M19.90 stop diclofenac and start celecoxib for the OA painsee chiro for the low back that helps Screening for malignant neoplasm of prostate 420182612 Z12.5 routine screen per patient request-- +FH of disease brother Screening for malignant neoplasm of colon 396933206 Z12.11 refuses colonscopy -- will check COLOGUARD and order sent Atypical chest pain 1025 04106 R07.[address] to [address]i st-- [facility]-- he is in no pain at this time Cigarette smoker 5885420 7 F17.210 I advised LDCT lungs and order given if willing and able to afford given risk Long-term drug therapy 563993464 Z79.899 lab ordered for today [id number] Flaquita Barakat MA [facility] [address] [place] [address] 08/12/2024 10:52:30 08/12/2024 11:28:26 Administration of influenza vaccine 92240371 Z23 routine flu shot today [id number] Renita Elkins MD [facility] [address] [place] [address] 09/01/2024 13:55:54 09/02/2024 13:12:22 Near syncope 177567205 R55 not clear as to cause-- feels likely related to weed smoked that he bought off of the street She is concerned that the THC has triggered rubin He reports extensive mental health issues and that his father and grandfathe r also had mental health issues as well-- dad was a full blown alcoholic Bipolar disorder 0745379 4 F31.9 discussed mood stabilliza tion and agrees to start SERROQUEL ( reports ill effects from LITHIUM and DEPEKOTE in the past) History of alcohol abuse 407969957 F10.10 he reports he is in recovery and agrees that he is not drinking any alcohol Unintentio nal weight loss 579604274 R63.4 he thinks that the weight has been lost due to his increase in activity and walking the dog -- will follow [id number] Renita Elkins MD [facility] [address] [place] [address] 11/17/2024 14:14:15 11/18/2024 11:51:58 Adult health examination 466016947 Z00.00 here for an annual check updiet discussed .Safety and fall prevention strategies discussed Cigarette smoker 7533452 7 F17.210 I advised LDCT lungs and order given if willing and able to afford given risk -- order sent Bipolar disorder 8068909 4 F31.9 plan for watchful waiting at this time-- no meds ( he did not tolerate ARIPIPRAZO LE given at last OV) History of alcohol abuse 051205916 F10.10 he reports he is in recovery and agrees that he is not drinking any alcohol Administra tion of pneumococcal vaccine 24470134 Z23 will give vaccine given COPD for PREVNAR 20 today Screening for malignant neoplasm of prostate 279589727 Z12.5 routine screen per patient request-- +FH of disease brother-- lab ordered at [facility] in [place]- - orders printed Long-term drug therapy 882560756 Z79.899 lab ordered for today Hepatitis C screening 41 3600424 Z11.59 agrees to screen and order sent/print ed HIV screening 218826622 Z11.4 agrees to screen and order sent/ printed Hyperlipidemia 29907105 E78.5 check lipids again and consider STATIN to lower chol since elevated in the past Abdominal aortic aneurysm screening 548052532 Z13.6 discussed AAA screen and [facility]-- male/ smoker age > 65 Health Concerns Section Related Observation LastModified by Organization Detai ls LastModified Time None Recorded Concern Status LastModified by Organization Details LastModified Time None Recorded Advance Directives Directive Y: Payers Encounter Date Sequence Insurance Name Policy Number Policy Kevin Covered Member ID Kevin Member ID Guarantor Name 09/29/2021 1 [facility] [id number] Jori Jonas [id number] Jori Jonas 12/11/2022 1 [facility] [employer] [id number] Jori Jonas [id number] Jori Jonas 08/12/2024 1 [facility] (MEDICARE REPLACEMENT/A DVANTAGE - PPO) [id number] Jori Jonas [id number] Jori Jonas 09/01/2024 1 [facility] (MEDICARE REPLACEMENT/A DVANTAGE - PPO) [id number] Jori Jonas [id number] Jori Jonas 11/17/2024 1 [facility] (MEDICARE REPLACEMENT/A DVANTAGE - PPO) [id number] Jori Jonas [id number] Jori Jonas Notes Date Note Type Note Provider Name and Address Organization Details Recorded Time 09/29/2021 text/html annual Renita Elkins MD Attn: Accounting,[address] [facility], [place], [address], [facility] 09/29/2021 19:47:44 12/11/2022 text/html annual Renita Elkins MD Attn: [address] [place], [address], [facility] 12/11/2022 13:23:54 09/01/2024 text/html Anxiety/Depressi onR eported bypatient.Quality:s ymptoms worse in the evening;mood worse;increased anxiety Severity:denies suicidal ideations; able to maintain relationships; does not interfere with activities of daily living Duration:2 months Onset/Timing:sudden Context:tobacco use; stop smoking pot Modifying Factors:herbal medications; social support Associated Symptoms:weight loss (31 lbs);emotional lability;high irritability;sleep disturbances;anxiet y with muscle tension;low self-esteem;despair /hopelessness;socia l withdrawal; extrem highs and lows, lost weight, Last night pt states he blacked out for a minute at the dinner table. reports she feels he has MANIC DEPRESSION and had stopped smoking medical marijuana about 39 days and reports she feels he is more manic since he stopped.He is in recovery from drinking alcohol for many years. Renita Elkins MD Attn: Accounting,[address] [facility], [place], [address], [facility] 09/01/2024 15:31:15 11/17/2024 text/html MAW 2Reported bypatient.Diet and Nutrition:healthy diet Fracture Risk:no history of fractures; no sudden unexplained fractures Concentration and Memory:no decreased concentrating ability; no memory lapses or loss; does not forget words Speech/Motor difficulties:no speech difficulties; no difficulty expressing formulated concepts; no difficulty with fine manipulative tasks; no difficulty writing/copying; no slowed reaction time; does not knock things over when trying to pick them up Hearing:no loss of hearing Vision:no vision problems Activities of Daily Living:able to bathe with limited or no assistance; able to contol urination and bowels; able to dress with limited or no assistance; able to feed self with limited or no assistance; able to get out of chair or bed with limited or no assistance; able to groom with limited or no assistance; able to toilet with limited or no assistance Instrumental Activities of Daily Living:able to do house work with limited or no assistance; able to grocery shop with limited or no assistance; able to manage medications with limited or no assistance; able to manage money with limited or no assistance; able to prepare meals with limited or no assistance; able to use the phone with limited or no assistance Falls Risk Assessment:no frequent falls while walking; no fall in the past year; no fall since last visit; no dizziness/vertigo Home Safety:no unsafe sole hazzards; no unsafe stairs; working smoke/CO detectors; good lighting in the home;does not have hand bars in the bathroom/shower here for an annual check up Renita Elkins MD Attn: [address]ing[address] [place], [address], [facility] 11/17/2024 17:46:55
--- OUTSIDE RECORDS SUMMARY | 2025-01-07 08:28 | XMS_ITS | Clinical Summary ---
Author Organization [facility] Address [address] [place] [address] Care Team Providers Care Catalogue Clerk Name Role Phone Renita Donaldson MD Primary Care Provider [phone] Allergies No known active allergies Medications diclofenac [...] 08/12/2018 Tdap 05/27/2018 Tetanus Toxoid, Unspecified 04/20/2019 Surgical History Surgery Date Site/Laterality Comments KNEE ARTHROPLASTY Right Knee replacement Medical History Medical History Date Comments Gout Gout Family History Medical History Relation Name Comments Alcohol abuse Other Alcoholism; Cancer Other Cancer, unknown ; Heart failure Other Congestive hea rt failure; Relation Name Status Comments Other Social History Tobacco Use Types Packs/Day Years Used Date Smoking Tobacco: Some Days Smokeless Tobacco: Never Tobacco Cessation:Ready to Q uit: No; Counseling Given: Yes Sex and Gender Information Value Date Recorded Sex Assigned at Not on file Legal Sex Male 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 Gender Identity Not on file Sexual Orientation Not on file Obstetrics History Last Filed Vital Signs Vital Sign Reading Time Taken Comments Blood Pressure 117/68 05/31/2022 12:08 PM CDT Pulse 67 05/31/2022 12:08 PM CDT Temperature - - Respiratory Rate - - Oxygen Saturation - - Inhaled Oxygen Concentration - - Weight 108.4 kg (238 lb 15.7 oz) 09/23/2024 9:49 AM 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 Height 179.1 cm (5' 10.51 ) 09/23/2024 9:[address] Body Mass Index 33.79 09/23/2024 9:49 AM 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 Plan of Treatment Health Maintenance Due Date Last Done Comments Colon Cancer Screening-Colonoscopy 1959 Depression Screening 1959 Fall Risk Assessment 1959 Hepatitis C Screening 1959 Prostate Cancer Screening-PSA 1959 Hepatitis B Screening 1977 Zoster Vaccine (1 of 2) 2009 Pneumococcal vaccine 65+ (2 of 2 - PCV) 08/12/2019 08/12/2018 Abdominal Aortic Aneurysm (A AA) Screen 01/26/2024 Well Visit 65+ 01/26/2024 Covid-19 Vaccine (4 - 2023-2 5 season) 2024 10/11/2021, 03/15/2021, 02/15/2021 Influenza Vaccine (#1) 2024 , 08/10/2020, 09/21/2019, Additional history exists DTaP/Tdap/Td Vaccine (2 - Td or Tdap) 05/27/2028 05/27/2018 Insurance [facility] [employer] Care Teams Catalogue Clerk Relationship Specialty Start Date End Date Renita Donaldson MD [address] [address] PCP - General Family Medicine 05/31/22
[2025-01-07 08:45] LABS: Hematocrit 45.1 % (42.0-52.0); Hemoglobin 14.8 g/dL (14.0-18.0); Mean Corpuscular HGB Conc 32.8 g/dl (32-36); Mean Corpuscular Hemoglobin 31.6 pg (26-34); Mean Corpuscular Volume 96.2 fl (80-100); Mean Platelet Volume 8.9 fl (7.4-10.4); Platelet Count Result 252 k/mm3 (150-375); Red Blood Count 4.69 M/mm3 (4.6-6.20); Red Cell Distribution Width 13.4 % (11.5-14.5); White Blood Count 6.7 K/mm3 (4.5-10.0)
[2025-01-07 08:56] LABS: Alanine Aminotransferase 10 U/L (6-50); Albumin Level 4.2 g/dL (3.5-5.1); Alkaline Phosphatase 67 U/L (38-126); Anion Gap 4 mmol/L (4-12); Aspartate Amino Transferase 19 U/L (17-59); Bilirubin,Total 0.4 mg/dL (0.2-1.3); Blood Urea Nitrogen 25 mg/dL (9-20); Calcium 9.8 mg/dL (8.4-10.2); Carbon Dioxide 30 mmol/L (22-30); Chloride 106 mmol/L (98-107); Cholesterol 193 mg/dL (0-200); Estimated Glomerular Filt Rate > 60; Glucose 96 mg/dL (65-110); HDL Direct 52 mg/dL; Potassium 4.9 mmol/L (3.4-5.0); Sodium 140 mmol/L (137-145); Triglycerides 82 mg/dL (<150)
[2025-01-07 09:07] LABS: LDL Cholesterol Direct 104 mg/dL
[2025-01-07 09:25] LABS: Prostate Specific Antigen 0.5 ng/mL (< OR = 4.0)
[2025-01-07 09:36] LABS: HIV 1/2 Ab P24 Ag Result Negative (Negative)
[2025-01-07 09:59] LABS: Hepatitis C Virus Antibody Negative (Negative)
== END 2025-01-07 08:08 | disposition home or self-care (01) ==
LOC: ANHLAB 08:16
PROVIDERS: PCP Family Medicine; Visit Provider Family Medicine
DX: E78.5 Hyperlipidemia, unspecified (principal); Z12.5 Encounter for screening for malignant neoplasm of prostate; Z79.899 Other long term (current) drug therapy; Z11.59 Encounter for screening for other viral diseases; Z11.4 Encounter for screening for human immunodeficiency virus [HIV]
CPT/HCPCS: 36415; 80053; 80061; 84153; 85027; 86703; 86803; G0103; G0432